=== PATIENT | female | born 1995 | race Caucasian/White ===

== ENCOUNTER 2020-01-27 19:04 | Emergency (ER) | payer OTHER ==
[~2020-01-27] VITALS: Ht 175.3 cm; Wt 61.2 kg
[2020-01-27] MEDS ORDERED: SPRINTEC 28 DA1 EACH (19:49)
[2020-01-28] MEDS ORDERED: KETO10TA2 PO (03:12)
== END 2020-01-28 03:24 | disposition home or self-care (01) ==
LOC: ER 19:04
DX: N83.292 Other ovarian cyst, left side (principal); R00.1 Bradycardia, unspecified; Z03.818 Encounter for observation for suspected exposure to other biological agents ruled out

== ENCOUNTER 2020-09-11 08:55 | Outpatient (CLI) | payer OTHER ==
[~2020-09-11 08:55] MED LIST: KETO10TA2 PO; SPRINTEC 28 DA1 EACH
== END 2020-09-11 08:56 | disposition home or self-care (01) ==
LOC: PPH VACUNA 08:55
DX: Z23 Encounter for immunization (principal)